=== PATIENT | female | born 1985 | race Caucasian/White ===

== ENCOUNTER → 2019-08-19 | Outpatient (CLI) | payer OTHER ==
[~2019-08-19] MED LIST: IOHEXOL 240 MG/ML 50ML VIAL. IT ONE
--- NOTE | 2019-08-19 16:03 | RAD ---
Hysterosalpingogram HISTORY: Infertility COMPARISON: None TECHNIQUE: Patient was informed of the risks to include pain, infection, bleeding, allergic reaction. All questions were answered. Patient signed a written consent form for hysterosalpingogram. Patient was placed in a supine position on the fluoroscopy table. External skin surface was cleansed with Betadine solution. Speculum was inserted. Cervix was cleansed with Betadine solution. HSG catheter was inserted and secured with balloon inflation. Contrast was injected during fluoroscopic visualization, cc of Omnipaque 180. The balloon was deflated and catheter removed. Speculum was removed. There were no immediate complications. FINDINGS: There is a small, approximate 2 to 3 mm, somewhat oblong, more focal filling defect of the uterus closer to the lower uterine segment, some other wall irregularity. Normal caliber fallopian tubes are patent bilaterally. Cervix is patent. Fluoroscopy time: 0.4 minutes, 6 images. IMPRESSION: 1. Both fallopian tubes are patent. 2. There is a focal filling defect of the uterus near the lower uterine segment, nonspecific although could be due to synechiae or polyp. Electronically signed by: Higinio Jain MD (08/19/2019 4:00 PM) [id number]
== END ==
LOC: RAD 09:47
PROVIDERS: ATTEND Obstetrics & Gynecology
DX: N97.9 Female infertility, unspecified (principal)
CPT/HCPCS: 58340; 74740; Q9966